=== PATIENT | male | born 1980 | race Caucasian/White ===

== ENCOUNTER → 2016-08-10 | Outpatient (CLI) | payer BC ==
--- NOTE | 2016-08-10 19:15 | DIAGNOSTIC IMAGING REPORT ---
MRI OF THE RIGHT TIBIA AND FIBULA WITHOUT IV CONTRAST CLINICAL HISTORY: Right calf pain. COMPARISON STUDY: No priors. TECHNIQUE: MRI of the right tibia and fibula is performed utilizing various T1 and T2-weighted sequences in the axial, sagittal, and coronal planes. IV contrast was not administered for this examination. Note that interpretation is suboptimal without plain film correlate. FINDINGS: There is no MRI evidence of fracture involving the right tibia or fibula. No destructive bony lesion is seen. A benign-appearing T2 hyperintense popcorn lesion in the proximal tibial metadiaphysis measures up to 1.5 cm and is typical in appearance for an enchondroma. The pretibial soft tissues are normal in appearance. The musculature of the calf is normal in bulk and signal intensity. The regional vessels appear patent. IMPRESSION: 1. No acute abnormality is identified in the right calf. 2. A benign-appearing lesion in the proximal tibial metadiaphyseal region is typical in appearance for a small enchondroma. Radiographic correlation is recommended. Dictated: 08/10/2016 6:45 PM Transcribed: 08/10/2016 7:15 PM Kathleen Electronically signed by: Bishnu Wilhelm M.D. 08/10/2016 7:17 PM Dictated Date/Time: 08/10/2016 6:45 PM
--- NOTE | 2016-08-10 19:18 | DIAGNOSTIC IMAGING REPORT ---
MRI OF THE LEFT TIBIA AND FIBULA WITHOUT IV CONTRAST CLINICAL HISTORY: Left calf pain. COMPARISON STUDY: No priors. TECHNIQUE: MRI of the left tibia and fibula is performed utilizing various T1 and T2-weighted sequences in the axial, sagittal, and coronal planes. IV contrast was not administered for this examination. Note that interpretation is suboptimal without plain film correlate. FINDINGS: Normal marrow signal intensity is preserved throughout the left tibia and fibula. There is no MRI evidence of fracture. There is mild edema seen within the inferior aspect of the medial head of the gastrocnemius muscle at the musculotendinous junction. This is best seen on axial STIR image #22. No hematoma is identified. There is trace surrounding fluid and edema. The musculature of the capsule is normal in bulk and signal intensity. The pretibial soft tissues are within normal limits. The regional vessels appear patent. IMPRESSION: 1. Findings are consistent with muscular strain/small tear involving the inferior aspect of the medial gastrocnemius muscle at the musculotendinous junction. No musculotendinous retraction is seen. 2. No hematoma is identified. No additional abnormality is seen. 3. The left tibia and fibula are normal in appearance. Dictated: 08/10/2016 7:03 PM Transcribed: 08/10/2016 7:18 PM BRENT_Sandra Electronically signed by: Bishnu Wilhelm M.D. 08/10/2016 7:32 PM Dictated Date/Time: 08/10/2016 7:03 PM
== END | disposition home or self-care (01) ==
LOC: C.MRI 16:58
PROVIDERS: ATTEND Physical Medicine & Rehabilitation
DX: S86.812A Strain of other muscle(s) and tendon(s) at lower leg level, left leg, initial encounter (principal); X58.XXXA Exposure to other specified factors, initial encounter; M79.661 Pain in right lower leg; M89.8X6 Other specified disorders of bone, lower leg

== ENCOUNTER → 2016-08-19 | Outpatient (CLI) | payer BC ==
--- NOTE | 2016-08-21 15:00 | DIAGNOSTIC IMAGING REPORT ---
RIGHT TIBIA AND FIBULA 2 VIEWS CLINICAL HISTORY: Enchondroma. FINDINGS: AP and lateral views of the right tibia and fibula are correlated with MRI of the right tibia and fibula dated 08/10/2016. No fracture is seen. A 1.2 cm benign-appearing sclerotic lesion with a narrow zone of transition is seen in the proximal tibia. This corresponds to the lesion seen by MRI. No additional lesion is seen. The knee and ankle joints are grossly preserved. The overlying soft tissues are within normal limits. IMPRESSION: 1. No acute bony abnormality is seen in the right tibia or fibula. 2. A subtle sclerotic lesion is present in the proximal tibia. The appearance is typical for a small enchondroma. 1 additional precautionary 6 month follow-up examination is recommended. Electronically signed by: Bishnu Wilhelm M.D. 08/21/2016 2:58 PM Dictated Date/Time: 08/21/2016 2:56 PM
== END | disposition home or self-care (01) ==
LOC: C.RDSM 15:55
PROVIDERS: ATTEND Physical Medicine & Rehabilitation
DX: D16.21 Benign neoplasm of long bones of right lower limb (principal)